=== PATIENT | male | born 1960 | race Caucasian/White ===

== ENCOUNTER 2016-09-21 10:42 | Outpatient (CLI) | payer BC, OTHER ==
[2016-09-21 11:43] LABS: Cardiac Risk 3.2 (Less than 4.5)
== END 2016-09-21 10:43 | disposition home or self-care (01) ==
LOC: MADLAB 10:42
PROVIDERS: ATTEND Internal Medicine Cardiovascular Disease
DX: F17.290 Nicotine dependence, other tobacco product, uncomplicated (principal); I10 Essential (primary) hypertension; Z98.61 Coronary angioplasty status
CPT/HCPCS: 36415; 80061